=== PATIENT | male | born 1990 | race Caucasian/White ===

== ENCOUNTER 2017-07-22 10:48 | Emergency (ER) | payer BC, MEDICAID ==
[~2017-07-22] VITALS: Ht 170.2 cm; Wt 70.3 kg
[2017-07-22] MEDS ORDERED: ONDANSETRON 4 MG/2 ML VIAL IV ONE (11:30)
[2017-07-22] MEDS ORDERED: IV NORMAL SALINE 1000 ML BAG IV ONE (11:30)
[2017-07-22] MEDS ORDERED: KETOROLAC TROMETHAMINE 15 MG INJ IV ONE (11:30)
[2017-07-22] MEDS ORDERED: PANTOPRAZOLE SODIUM 40 MG VIAL IV ONE (11:30)
[2017-07-22] MEDS ORDERED: KETOROLAC TROMETHAMINE 15 MG INJ ONE (11:57)
[2017-07-22] MEDS ORDERED: PANTOPRAZOLE SODIUM 40 MG VIAL ONE (11:57)
[2017-07-22] MEDS ORDERED: ONDANSETRON 4 MG/2 ML VIAL ONE (11:57)
--- NOTE | 2017-07-22 12:00 | NUR ---
PT IS IN ROOM #2B. DR PRADHAN EVALUATED THE PT.
[2017-07-22 12:53] LABS: BASOPHILS % (AUTO) 0.1 % (0.0-2.0); EOSINOPHILS # (AUTO) 0.1 K/uL (0.0-0.7); EOSINOPHILS % (AUTO) 0.8 % (0.0-7.0); HEMATOCRIT 42.8 % (36.7-47.1); HEMOGLOBIN 14.4 g/dL (12.5-16.3); LYMPHOCYTES # (AUTO) 0.3 K/uL (20.0-40.0); LYMPHOCYTES % (AUTO) 3.9 % (20.5-51.5); MEAN CORPUSCULAR HEMOGLOBIN 31.2 uug (23.8-33.4); MEAN CORPUSCULAR HGB CONC 34 g/dL (32.5-36.3); MEAN CORPUSCULAR VOLUME 92.6 fL (73.0-96.2); MONOCYTES # (AUTO) 0.2 K/uL (2.0-10.0); MONOCYTES % (AUTO) 2.8 % (0.0-11.0); NEUTROPHILS # (AUTO) 7.3 K/uL (1.8-8.9); NEUTROPHILS % (AUTO) 92.4 % (38.5-71.5); PLATELET COUNT (AUTO) 162 K/uL (152-348); RED BLOOD CELL COUNT(AUTO) 4.63 MIL/uL (4.06-5.63); WHITE BLOOD COUNT (AUTO) 7.9 K/uL (3.6-10.2)
[2017-07-22 13:09] LABS: CREATININE 0.9 mg/dL (0.6-1.3); POTASSIUM 4.3 mmol/L (3.5-5.1)
[2017-07-22 13:15] LABS: BILIRUBIN,DIRECT 0.2 mg/dL (0.0-0.2); BILIRUBIN,TOTAL 0.9 mg/dL (0.2-1.0); TOTAL PROTEIN, SERUM 6.1 g/dL (6.4-8.2)
--- NOTE | 2017-07-22 14:16 | NUR ---
PT WAS D/C TO HOME. D/C INSTRUCTIONS GIVEN TO THE PT. NO N/V, PT DENIES PAIN.
[2017-07-22 14:17] VITALS: BP 129/71
== END 2017-07-22 14:18 | disposition home or self-care (01) ==
LOC: ER 10:48
DX: A08.4 Viral intestinal infection, unspecified (principal)
CPT/HCPCS: 36415; 80048; 80076; 83690; 85025; 96361; 96374; 96375; 99285; A4663; C9113; J1885; J2405; J7030 ×2

== ENCOUNTER 2017-07-24 09:50 | Emergency (ER) | payer BC ==
[~2017-07-24] VITALS: Ht 170.2 cm; Wt 70.3 kg
[2017-07-24] MEDS ORDERED: ONDANSETRON 4 MG/2 ML VIAL IV ONE (10:30)
[2017-07-24] MEDS ORDERED: IV NORMAL SALINE 1000 ML BAG IV ONE (10:30)
[2017-07-24] MEDS ORDERED: PANTOPRAZOLE SODIUM 40 MG VIAL IV ONE (10:30)
[2017-07-24] MEDS ORDERED: PANTOPRAZOLE SODIUM 40 MG VIAL ONE (11:14)
[2017-07-24] MEDS ORDERED: ONDANSETRON 4 MG/2 ML VIAL ONE (11:14)
[2017-07-24 11:52] LABS: POTASSIUM 4.6 mmol/L (3.5-5.1)
[2017-07-24 11:57] LABS: BILIRUBIN,DIRECT 0.2 mg/dL (0.0-0.2); BILIRUBIN,TOTAL 0.7 mg/dL (0.2-1.0)
--- NOTE | 2017-07-24 12:39 | NUR ---
Patient discharged to home in stable conditon. Written and verbal after care instructions given. Patient verbalizes understanding of instructions.PT SAYS FEELS BETTER. PT ACCOMPANIED BY FAMILYMEMBER.
[2017-07-24 12:40] VITALS: BP 119/70
== END 2017-07-24 12:41 | disposition home or self-care (01) ==
LOC: ER 09:50
DX: A08.4 Viral intestinal infection, unspecified (principal)
CPT/HCPCS: 36415; 83690; A4663; C9113; J2405; J7030

== ENCOUNTER 2018-09-24 03:18 | Emergency (ER) | payer BC ==
[~2018-09-24] VITALS: Ht 170.2 cm; Wt 70.3 kg
--- NOTE | 2018-09-24 03:25 | NUR ---
Ambulated to Room 4A with c/o abdominal pain, nausea and vomiting. had "too much to drink--one bottle of vodka." is not an alcoholic.
[2018-09-24] MEDS ORDERED: METOCLOPRAMIDE HCL 10 MG/2 ML VIAL IV ONE (03:45)
[2018-09-24] MEDS ORDERED: IV NORMAL SALINE 1000 ML BAG IV ONE (03:45)
[2018-09-24] MEDS ORDERED: METOCLOPRAMIDE HCL 10 MG/2 ML VIAL ONE (03:47)
[2018-09-24 03:55] LABS: CREATININE 0.9 mg/dL (0.6-1.3)
--- NOTE | 2018-09-24 04:20 | NUR ---
Sleeping after IV Reglan. IVF continues to infuse.
--- NOTE | 2018-09-24 05:00 | NUR ---
Patient discharged to home in stable conditon. Written and verbal after care instructions given. Prescription given. Patient verbalizes understanding of instructions.
== END 2018-09-24 05:00 | disposition home or self-care (01) ==
LOC: ER 03:20
DX: R11.2 Nausea with vomiting, unspecified (principal); F10.10 Alcohol abuse, uncomplicated; Y90.9 Presence of alcohol in blood, level not specified
CPT/HCPCS: 36415; 80048; 83690; 96361; 96374; 99283; J2765; A4663; J7030

== ENCOUNTER 2020-09-01 17:01 | Emergency (ER) | payer BC ==
[~2020-09-01] VITALS: Ht 170.2 cm; Wt 70.3 kg
[2020-09-01] MEDS ORDERED: KETOROLAC TROMETHAMINE 60 MG INJ IM ONE ×2 (17:30→17:40)
[2020-09-01 17:38] LABS: *BILIRUBIN,URIN NEGATIVE (NEGATIVE); *BLOOD, URINE NEGATIVE (NEGATIVE); *CLARITY,URINE CLEAR (CLEAR); *COLOR,URINE LIGHT YELLOW (YELLOW); *KETONES,URINE NEGATIVE (NEGATIVE); *UROBILINOGEN,URINE 0.2 E.U./dl (NORMAL); LEUKOCYTE ESTERASE ,URINE NEGATIVE (NEGATIVE); NITRITE, URINE NEGATIVE (NEGATIVE); UGLUCOSE NEGATIVE (NEGATIVE)
[2020-09-01] MEDS ORDERED: SWABABLE VALVE TRANSFER SET EA MC ONE (17:39)
[2020-09-01] MEDS ORDERED: IOHEXOL 300MG/ML 100 ML INFUS..BTL ONE (17:39)
[2020-09-01] MEDS ORDERED: IV NORMAL SALINE 250 ML IV ONE (17:39)
[2020-09-01 17:45] LABS: BASOPHILS % (AUTO) 0.7 % (0.0-2.0); EOSINOPHILS # (AUTO) 0.2 K/uL (0.0-0.7); EOSINOPHILS % (AUTO) 3.3 % (0.0-7.0); HEMATOCRIT 40.8 % (36.7-47.1); HEMOGLOBIN 14.3 g/dL (12.5-16.3); LYMPHOCYTES # (AUTO) 1.4 K/uL (20.0-40.0); LYMPHOCYTES % (AUTO) 25.6 % (20.5-51.5); MEAN CORPUSCULAR HEMOGLOBIN 32.2 uug (23.8-33.4); MEAN CORPUSCULAR HGB CONC 35 g/dL (32.5-36.3); MEAN CORPUSCULAR VOLUME 91.9 fL (73.0-96.2); MONOCYTES # (AUTO) 0.3 K/uL (2.0-10.0); MONOCYTES % (AUTO) 6.4 % (0.0-11.0); NEUTROPHILS # (AUTO) 3.4 K/uL (1.8-8.9); PLATELET COUNT (AUTO) 211 K/uL (152-348); RED BLOOD CELL COUNT(AUTO) 4.44 MIL/uL (4.06-5.63); WHITE BLOOD COUNT (AUTO) 5.3 K/uL (3.6-10.2)
[2020-09-01 17:48] LABS: CREATININE 0.9 mg/dL (0.6-1.3); POTASSIUM 4.1 mmol/L (3.5-5.1)
[2020-09-01 17:55] LABS: BILIRUBIN,DIRECT 0.1 mg/dL (0.0-0.2); BILIRUBIN,TOTAL 0.4 mg/dL (0.2-1.0); TOTAL PROTEIN, SERUM 7.6 g/dL (6.4-8.2)
--- NOTE | 2020-09-01 18:13 | NUR ---
[place] GARCIA TALKED TO DR. PARRISH FOR SURGICAL CONSULT
[2020-09-01] MEDS ORDERED: IV NS 1000 ML 1,000 ML IV ONE (18:15)
[2020-09-01] MEDS ORDERED: PIPERACILLIN SODIUM/TAZOBACTAM 3.375 G in IV DEXTROSE 5% 50 ML IV ONE (18:15)
[2020-09-01] MEDS ORDERED: PIPERACILLIN/TAZOBACTAM/D5W 50 ML IV ONE (18:28)
--- NOTE | 2020-09-01 18:50 | NUR ---
Patient does not wish to proceed with medical care recommended by ( GARY ). Patient given information related to possible complications, up to and including , which could occur as a result of leaving the hospital at this time. Patient verbalizes understanding of risks involved due to leaving against medical advice. Patient has signed AMA form.
== END 2020-09-01 18:53 | disposition left against medical advice (07) ==
LOC: ER 17:02
DX: K35.80 Unspecified acute appendicitis (principal)
CPT/HCPCS: 36415; 74177; 80048; 80076; 81003; 83690; 85025; 96365; 99285; J2543; Q9967; A4663; J1885; J7030; J7050